=== PATIENT | male | born 1975 | race Caucasian/White ===

== ENCOUNTER 2017-05-21 21:54 | Emergency (ER) | payer SELFPAY ==
[~2017-05-21] VITALS: Ht 165.1 cm; Wt 85.7 kg
[2017-05-21 21:55] VITALS: BP 180/106
--- NOTE | 2017-05-21 22:29 | Emergency Room Report ---
History of Present Illness General Chief Complaint: Hypertension Source: Patient, Friend Present Illness HPI 42YOM BIBEMS from hotel - visiting from [place] - for 2 weeks of "weakness in my core " Associated with weakness both extremities when "just walking a few steps." Denies headache, chest pain, abd pain, urinary complaints, fever/chills Appetite is normal No PMHX, no meds Saw PMD right before flight ,"had some cerumen in my ears." - states all "blood tests were fine." Denies associated vertigo, headache Went to local pharmacy, BP was >200/100 No history of HTN Allergies: Coded Allergies: No Known Allergies (Unverified , 05/21/17) Patient History Past Medical History: none Past Surgical History: none Pertinent Family History: none Social History: Denies: smoking, alcohol use, drug use Immunizations: UTD Reviewed Nursing Documentation: PMH: Agreed, PSxH: Agreed Nursing Documentation-PMH Past Medical History: No Stated History Review of Systems All Other Systems: negative except mentioned in HPI Physical Exam Vital Signs Date Time Temp Pulse Resp B/P (MAP) Pulse Ox O2 Delivery O2 Flow Rate FiO2 05/21/17 21:45 98.1 90 16 180/106 98 Room Air Sp02 EP Interpretation: reviewed, normal General Appearance: normal inspection, well appearing, no apparent distress, alert, GCS 15, non-toxic Head: normocephalic, atraumatic Eyes: bilateral eye PERRL, bilateral eye EOMI ENT: normal ENT inspection, hearing grossly normal, normal voice Neck: normal inspection, full range of motion, supple, no bony tend Respiratory: normal inspection, lungs clear, normal breath sounds, no respiratory distress, no retraction, no wheezing Cardiovascular #1: regular rate, rhythm, no edema Gastrointestinal: normal inspection, normal bowel sounds, non tender, soft, no guarding, no hernia Genitourinary: no CVA tenderness Musculoskeletal: normal inspection, back normal, normal range of motion, [place]' s Sign negative Neurologic: normal inspection, alert, oriented x3, responsive, 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, motor strength/tone normal, speech normal Psychiatric: normal inspection, judgement/insight normal, mood/affect normal Skin: normal inspection, normal color, no rash Lymphatic: normal inspection Medical Decision Making Diagnostic Impression: Primary Impression: Hypertension Qualified Codes: I10 - Essential (primary) hypertension Additional Impressions: Weakness Hematuria Qualified Codes: R31.29 - Other microscopic hematuria ER Course VS with elevated BP in ED Afebrile No chest pain, headache, abd pain, flank pain Some mild detectable bilateral lower extrem weakness 4/5 CT head negative for mass, ICH, CVA UA with hematuria, RBCs Mildly elevated glucose Continued DBP>100 Given hydralazine - labetolol still on backorder/unavailable at this facility. No other appropriate more stable IV anti-hypertensives are available for me to use in this emergency department In long discussion and shared decision making with patient and his friend - I advised admission however his travel insurance will NOT cover the "board" of his hospital admission which was quoted to him as anywhere from $2k-10K/night by registration. He is concerned about high medical bills He does however have close followup with his PMD back in [place]. Has scheduled appt in 3 days but states can go as soon as day after tomorrow. Has flight back to [place] tomorrow. Given possible 3 days until he sees PMD I will Rx him Norvasc 10mg to start treating his BP. I suspect he has had long history of untreated HTN as well He is exhibiting signs of end-organ damage possibly with blood in urine He does not show signs of AMI or CVA based on evaluation done. He understands importance of close PMD followup DC Home with Norvasc Rx EKG Diagnostic Results Rate: normal Rhythm: NSR ST Segments: no acute changes ASA given to the pt in ED: No Rhythm Strip Diag. Results EP Interpretation: yes Rate: 80 Rhythm: NSR, no PVC's, no ectopy Chest X-Ray Diagnostic Results Chest X-Ray Diagnostic Results : Chest X-Ray Ordered: Yes # of Views/Limited/Complete: 1 View Indication: Other - HTN EP Interpretation: Yes Interpretation: no consolidation, no effusion, no pneumothorax, no acute cardiopulmonary disease Impression: No acute disease Electronically Signed by: Dr Radha Fox MD Last Vital Signs Date Time Temp Pulse Resp B/P (MAP) Pulse Ox O2 Delivery O2 Flow Rate FiO2 05/21/17 21:45 98.1 90 16 180/106 98 Room Air Status: improved Disposition: HOME, SELF-CARE Scripts Amlodipine Besylate (Norvasc) 10 Mg Tablet 10 MG ORAL DAILY for 30 Days, #30 TAB Prov: RADHA FOX M.D. 05/22/17 RADHA FOX M.D. May 21, 2017 22:29
[2017-05-21 22:58] LABS: EOSINOPHILS % (AUTO) 2.6 % (0.0-3.0); HEMATOCRIT 46.7 % (42.0-52.0); HEMOGLOBIN 15.4 G/DL (14.2-18.0); LYMPHOCYTES % (AUTO) 20.6 % (20.0-45.0); MEAN CORPUSCULAR VOLUME 94 FL (80-99); MONOCYTES % (AUTO) 9.5 % (1.0-10.0); NEUTROPHILS % (AUTO) 66.4 % (45.0-75.0); PLATELET COUNT 187 K/UL (150-450); RED BLOOD COUNT 4.99 M/UL (4.70-6.10); RED CELL DISTRIBUTION WIDTH 11.5 % (11.6-14.8); WHITE BLOOD COUNT 8.6 K/UL (4.8-10.8)
[2017-05-21 23:01] LABS: APPEARANCE,URINE CLEAR; BILIRUBIN, URINE NEGATIVE (NEGATIVE); COLOR,URINE PALE YELLOW; GLUCOSE, URINE (UA) NEGATIVE (NEGATIVE); KETONES,URINE NEGATIVE (NEGATIVE); LEUKOCYTE ESTERASE ,URINE 1+ (NEGATIVE); NITRITE,URINE NEGATIVE (NEGATIVE); PH,URINE 7 (4.5-8.0); PROTEIN,URINE NEGATIVE (NEGATIVE); UROBILINOGEN,URINE NORMAL MG/DL (0.0-1.0)
[2017-05-21 23:22] LABS: ALANINE AMINOTRANSFERASE 59 U/L (12-78); ALBUMIN 3.8 G/DL (3.4-5.0); ALBUMIN/GLOBULIN RATIO 1.1 (1.0-2.7); ALKALINE PHOSPHATASE 76 U/L (46-116); ANION GAP 7 mmol/L (5-15); ASPARTATE AMINO TRANSFERASE 28 U/L (15-37); BILIRUBIN,TOTAL 0.2 MG/DL (0.2-1.0); BLOOD UREA NITROGEN 14 mg/dL (7-18); CALCIUM 9.1 MG/DL (8.5-10.1); CARBON DIOXIDE 28 MMOL/L (21-32); CHLORIDE 106 MMOL/L (98-107); CREATININE 1.2 MG/DL (0.55-1.30); POTASSIUM 3.6 MMOL/L (3.5-5.1); SODIUM 141 MMOL/L (136-145)
[2017-05-21 23:36] LABS: CKMB 2.6 NG/ML (0.0-3.6); CREATINE KINASE 172 U/L (26-308)
[2017-05-21 23:55] VITALS: BP 191/107
[2017-05-22] MEDS ORDERED: NORVASC10 MG ORAL (00:56)
[2017-05-22 01:00] VITALS: BP 157/92
[2017-05-22 01:07] VITALS: BP 157/92
--- NOTE | 2017-05-22 10:18 | Diagnostic Imaging Report ---
Indication: Headache Technique: Contiguous 5 mm thick transaxial imaging of the head obtained in a Siemens Sensation [address] scanner. Soft tissue and bone windows generated. Automatic Exposure Control was utilized. Total Dose length Product (DLP): [address] Dose Index Volume (CTDIvol): 70.38, 0.15 mGy Comparison: none Findings: The size and configuration of the cortical sulci, basal cisterns, and ventricles are within normal limits for age. There is no mass effect, midline shift, or edema identified. There is no evidence of acute hemorrhage or abnormal intra-axial or extra-axial fluid collections. The bones and soft tissues are unremarkable. Impression: No mass effect, edema or acute bleed. [facility] has communicated the preliminary results to the Emergency Department. Their findings are largely concordant with this report. The CT scanner at [facility] is accredited by the [employer] and the scans are performed using dose optimization techniques as appropriate to a performed exam including Automatic Exposure control.
--- NOTE | 2017-05-22 10:18 | Diagnostic Imaging Report ---
Indication: Headache Technique: Contiguous 5 mm thick transaxial imaging of the head obtained in a Siemens Sensation [address] scanner. Soft tissue and bone windows generated. Automatic Exposure Control was utilized. Total Dose length Product (DLP): [address] Dose Index Volume (CTDIvol): 70.38, 0.15 mGy Comparison: none Findings: The size and configuration of the cortical sulci, basal cisterns, and ventricles are within normal limits for age. There is no mass effect, midline shift, or edema identified. There is no evidence of acute hemorrhage or abnormal intra-axial or extra-axial fluid collections. The bones and soft tissues are unremarkable. Impression: No mass effect, edema or acute bleed. [facility] has communicated the preliminary results to the Emergency Department. Their findings are largely concordant with this report. The CT scanner at [facility] is accredited by the [employer] and the scans are performed using dose optimization techniques as appropriate to a performed exam including Automatic Exposure control.
--- NOTE | 2017-05-22 12:59 | Diagnostic Imaging Report ---
Indication: Dyspnea Comparison: None A single view chest radiograph was obtained. Findings: Cardiomediastinal appearance is within normal limits for age. Pulmonary vascularity is appropriate. The diaphragmatic contour is smooth and costophrenic angles are sharp. No pleural effusions are identified. The bones are unremarkable. Examination limited by low lung volumes. Impression: No acute findings
--- NOTE | 2017-05-22 15:34 | Cardiology Report ---
APPROVED REPORT EKG Measurement Heart [id number] [place] [id number] Normal sinus rhythm Nonspecific T wave abnormality Abnormal ECG
--- NOTE | 2017-05-22 15:34 | Cardiology Report ---
APPROVED REPORT EKG Measurement Heart [id number] [place] [id number] Normal sinus rhythm Nonspecific T wave abnormality Abnormal ECG
--- NOTE | 2017-05-22 15:34 | Cardiology Report ---
APPROVED REPORT EKG Measurement Heart [id number] [place] [id number] Normal sinus rhythm Nonspecific T wave abnormality Abnormal ECG
== END 2017-05-22 01:07 | disposition home or self-care (01) ==
LOC: EDBD 21:54 → EMR 23:23
DX: I10 Essential (primary) hypertension (principal); R53.1 Weakness; R31.9 Hematuria, unspecified
CPT/HCPCS: 36415; 70450; 71010; 80053; 81003; 82550; 82553; 84484; 85025; 93005; 96361; 96374; 99284; J0360